=== PATIENT | male | born 1980 | race Caucasian/White ===

== ENCOUNTER 2020-04-12 21:43 | Observation (INO) ==
[2020-04-12] MEDS ORDERED: SODIUM CHLORIDE 0.9% 1000ML 1,000 ML IV SCH (22:15)
[2020-04-12 22:37] LABS: Basophils # (auto) 0.04 K/uL (0-0.2); Basophils % (auto) 0.4 %; Eosinophils # (auto) 0.17 K/uL (0-0.5); Eosinophils % (auto) 1.7 %; Hematocrit (blood only) 42.2 % (42-52); Hemoglobin 14.7 g/dL (14.0-18.0); Immature Granulocytes # (auto) 0.02 K/uL (0.00-0.02); Immature Granulocytes % (auto) 0.2 %; Lymphocytes # (auto) 2.47 K/uL (1.2-3.4); Lymphocytes % (auto) 24.2 %; Mean Corpuscular Hemoglobin 29.8 pg (25-34); Mean Corpuscular Hgb Conc 34.8 g/dL (32-36); Mean Corpuscular Volume 85.4 fL (80-100); Mean Platelet Volume 8.8 fL (7.4-10.4); Monocytes # (auto) 0.48 K/uL (0.11-0.59); Monocytes % (auto) 4.7 %; Neutrophils # (auto) 7.01 K/uL (1.4-6.5); Neutrophils % (auto) 68.8 %; Platelet Count 388 K/uL (130-400); RDW Coefficient of Variation 12.7 % (11.5-14.5); RDW Standard Deviation 39.5 fL (36.4-46.3); Red Blood Count 4.94 M/uL (4.7-6.1); White Blood Count 10.19 K/uL (4.8-10.8)
[2020-04-12 22:43] LABS: Alanine Aminotransferase 98 U/L (12-78); Albumin Level 3.7 gm/dl (3.4-5.0); Aspartate Aminotransferase 70 U/L (15-37); BUN Creatinine Ratio 17.5 (10-20); Blood Urea Nitrogen 17 mg/dl (7-18); Carbon Dioxide 29 mmol/L (21-32); Chloride 104 mmol/L (98-107); Creatinine Clr Calc Pharmacy 101.8 ml/min; Est GFR (African American) 113.7; Est GFR (Non-African American) 98.1; Glucose 132 mg/dl (70-99); Sodium 137 mmol/L (136-145)
[2020-04-12 22:46] LABS: Albumin Globulin Ratio 0.7 (0.9-2); Alkaline Phosphatase 72 U/L (45-117); Bilirubin,Total 0.9 mg/dl (0.2-1); Globulin 5.2 gm/dl (2.5-4.0); Total Protein 8.9 gm/dl (6.4-8.2)
[2020-04-12] MEDS ORDERED: VANCOMYCIN CONSULT ACTIVE PRN (22:48)
[2020-04-12] MEDS ORDERED: VANCOMYCIN HCL 1,500 MG in SODIUM CHLORIDE 0.9% 500 ML IV ONE (22:48)
[2020-04-12] MEDS ORDERED: NICOTINE 21 MG/24 HR TDSY TD STA (22:58)
--- NOTE | 2020-04-13 01:55 | History & Physical Report ---
Date of Service April 13, 2020 Assessment & Plan (1) Arm ulcer: Mr. Sullivan is a 39yo gentleman with a PMHx significant for IV drug abuse and alcohol abuse who was brought in by sister with concern for untreated arm ulcers/wounds. Wound on arm in setting of cellulitis and Hx of IV drug abuse -Pt states that the wounds/ulcers first appeared a year ago and progressively got worse -Has a Hx of IV heroin abuse in his teens, has been injecting subutex (NOT suboxone) recently, most recent injection into his arms about 3 months ago. Also injects into his toes. -of note, pt states he is terrified of needles (even though he used to inject) -afebrile on admission, no elevation in WBC -XR bilateral forearms pending, ESR and CRP pending for concern of osteomyelitis -Blood Cx pending x1 (pt dislikes needles) -No echo ordered as with no fever, no new murmur on exam-less concern for endocarditis. Consider ordering if blood culture is positive. -continue Vancomycin started in the ED -Toradol 15mg IV for pain -wound care nurse consult -consider surgery consult for possible debridement? -consult CM for discharge planning- pt would like help with subutex abuse Chest Pain -pt states he has periodic chest pain, relieved by laying down -EKG pending -trops added to already drawn labs and pending Elevated liver enzymes -AST and ALT elevated, alk phos and t bili normal -Pt has hx of chronic alcohol use- states he went through alcohol withdrawal once -Liver US ordered -consider Hepatitis panel if pt allows another blood draw Elevated glucose -glucose of 132 on admission, granted not fasting -hgba1c added to blood already drawn to rule out nonhealing ulcers in setting of hyperglycemia. Alcohol Abuse -Pt states he currently drinks 1 beer a day -Has previously undergone alcohol withdrawal -AWSS "at risk" protocol ordered FEN/GI: Regular diet DVT prophylaxis: SCDs as pt hates needles CODE STATUS: Full Dispo:Med/Surg (2) Elevated glucose: (3) Elevated liver enzymes: History of Present Illness Primary Care Provider: NO PCP Mr. Sullivan is a 39yo gentleman with a PMHx significant for IV drug abuse and alcohol abuse who was brought in by sister with concern for untreated arm ulcers/wounds. He states that the arm wounds developed about a year ago and he has been self treating at home with peroxide and bandages. He has a hx of injecting heroin as a teenager and has been injecting subutex (not suboxone) into his arms and feet as recently as 3 months ago. Currently he chews Subutex tablets that he obtains illegally every other day. He states that the lesions on his arm are not painful but he has noted pus-like drainage from them. He has smoked 2ppd since age 13, drinks a beer everyday and is allergic to Suboxone but uses Subutex. He lives in [place] with his girlfriend and 2 kids. 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 Allergies Allergy/AdvReac Type Severity Reaction Status Date / Time codeine AdvReac Intermediate Gastrointestinal Verified 04/12/20 22:29 Upset buprenorphine [From Suboxone] AdvReac Mild SEVERE Verified 04/12/20 22:29 HEADACH--SUBUTEX IS OK. naloxone [From Suboxone] AdvReac Mild SEVERE Verified 04/12/20 22:29 HEADACH--SUBUTEX IS OK. Home Medications Home Medications Medication Instructions Recorded Confirmed Type buprenorphine HCl [Subutex] 8 mg SUBLINGUAL Q OTHER DAY 04/12/20 04/12/20 History Past Med/Surg History Social History Smoking Status: Current every day smoker Second Hand Exposure: Yes; Do You Dip or Chew Tobacco: No; Tobacco Cessation Education Requested by Patient: Yes Hx Alcohol Use: Yes Alcohol type: beer Hx Substance Use: Yes Last Used Substance: Hours (ago) Last Used Substance Other:: 04/12/2020 Substance Use Type Other:: Subutex PO "disolves under the tongue" Preferred Language: Bermudian Communication Ability: Effective Beliefs That Will Affect Care: None Current Living Situation: Spouse Current Living Situation Comment: Lives at home with Kids and Girlfrined Other Information That Helps Us Care for You: No Feels Safe at Home: Yes Safety Concerns: Feels Safe At This Time Assistive Devices: None Review of Systems Constitutional: no fever, no chills and no sweats Eyes: no worsening vision Ear, Nose, Mouth, Throat: no nasal congestion and no sore throat Respiratory: no dyspnea and no dyspnea on exertion Cardiovascular: + chest pain; no dyspnea, no palpitations and no edema Gastrointestinal: no abdominal pain, no nausea, no vomiting, no constipation, no diarrhea/loose stools and no blood in stools Genitourinary: no dysuria and no hematuria Musculoskeletal: no back pain Integumentary: + skin ulcer Neurologic: no headache(s) and no confusion Psychiatric: no confusion Physical Exam Physical Exam: General: Alert, oriented. No acute distress, sitting up in bed Skin: Stage III/IV ulcerated lesion on right forearm with necrotic tissue and eschar, surrounding erythema. Similar but to lesser degree on left forearm. Psych: Appropriate mood and affect Neuro: No gross deficits HEENT: NC/AT Chest: Nontender to palpation. CV: RRR, Normal s1, s2. No murmurs appreciated Resp: Breath sounds clear bilaterally, no increased effort of breathing. No crackles/rhonchi/rales. Abdomen: Soft, nontender, nondistended. Extremities: No edema in lower extremities bilaterally. Results & Data Results & Data ([facility]) Vital Signs (Past 12 Hours) Vital Signs Temp Pulse Pulse Resp BP BP Pulse Ox 04/13/20 01:13 88 18 124/65 98 04/12/20 22:24 82 20 127/73 95 04/12/20 21:45 36.7 C 111 H 18 149/81 H 95 Laboratory Results Lab Results 04/12/20 04/12/20 04/12/20 Range/Units 22:15 22:15 22:15 WBC 10.19 (4.8-10.8) K/uL RBC 4.94 (4.7-6.1) M/uL Hgb 14.7 (14.0-18.0) g/dL Hct 42.2 (42-52) % MCV 85.4 (80-100) fL MCH 29.8 (25-34) pg MCHC 34.8 (32-36) g/dL RDW Std Deviation 39.5 (36.4-46.3) fL RDW Coeff of Andreia 12.7 (11.5-14.5) % Plt Count 388 (130-400) K/uL MPV 8.8 (7.4-10.4) fL Immature Gran % (Auto) 0.2 % Neut % (Auto) 68.8 % Lymph % (Auto) 24.2 % Carson % (Auto) 4.7 % Eos % (Auto) 1.7 % Baso % (Auto) 0.4 % Neut # (Auto) 7.01 H (1.4-6.5) K/uL Lymph # (Auto) 2.47 (1.2-3.4) K/uL Carson # (Auto) 0.48 (0.11-0.59) K/uL Eos # (Auto) 0.17 (0-0.5) K/uL Baso # (Auto) 0.04 (0-0.2) K/uL Immature Gran # (Auto) 0.02 (0.00-0.02) K/uL ESR (0-14) mm/hr Sodium 137 (136-145) mmol/L Potassium 4.0 (3.5-5.1) mmol/L Chloride 104 (98-107) mmol/L Carbon Dioxide 29 (21-32) mmol/L Anion Gap 3.0 (3-11) BUN 17 (7-18) mg/dl Creatinine 0.98 (0.6-1.4) mg/dl Est Cr Clr Drug Dosing 101.8 ml/min Est GFR ( Amer) 113.7 Est GFR (Non-Af Amer) 98.1 BUN/Creatinine Ratio 17.5 (10-20) Glucose 132 H (70-99) mg/dl Lactate 1.6 (0.4-2.0) mmol/L Calcium 9.0 (8.5-10.1) mg/dl Total Bilirubin 0.9 (0.2-1) mg/dl AST 70 H (15-37) U/L ALT 98 H (12-78) U/L Alkaline Phosphatase 72 (45-117) U/L Troponin I < 0.015 (0-0.045) ng/ml C-Reactive Protein 2.35 H (0-0.29) mg/dl Total Protein 8.9 H (6.4-8.2) gm/dl Albumin 3.7 (3.4-5.0) gm/dl Globulin 5.2 H (2.5-4.0) gm/dl Albumin/Globulin Ratio 0.7 L (0.9-2) Urine Color Urine Appearance (Clear) Urine pH (4.5-7.5) Ur Specific [place] (1.000-1.030) Urine Protein (Negative) Urine Glucose (UA) (Negative) Urine Ketones (Negative) Urine Blood (Negative) Urine Nitrite (Negative) Urine Bilirubin (Negative) Urine Urobilinogen (Negative) Ur Leukocyte Esterase (Negative) 04/12/20 04/13/20 Range/Units 22:15 04:16 WBC (4.8-10.8) K/uL RBC (4.7-6.1) M/uL Hgb (14.0-18.0) g/dL Hct (42-52) % MCV (80-100) fL MCH (25-34) pg MCHC (32-36) g/dL RDW Std Deviation (36.4-46.3) fL RDW Coeff of Andreia (11.5-14.5) % Plt Count (130-400) K/uL MPV (7.4-10.4) fL Immature Gran % (Auto) % Neut % (Auto) % Lymph % (Auto) % Carson % (Auto) % Eos % (Auto) % Baso % (Auto) % Neut # (Auto) (1.4-6.5) K/uL Lymph # (Auto) (1.2-3.4) K/uL Carson # (Auto) (0.11-0.59) K/uL Eos # (Auto) (0-0.5) K/uL Baso # (Auto) (0-0.2) K/uL Immature Gran # (Auto) (0.00-0.02) K/uL ESR 21 H (0-14) mm/hr Sodium (136-145) mmol/L Potassium (3.5-5.1) mmol/L Chloride (98-107) mmol/L Carbon Dioxide (21-32) mmol/L Anion Gap (3-11) BUN (7-18) mg/dl Creatinine (0.6-1.4) mg/dl Est Cr Clr Drug Dosing ml/min Est GFR ( Amer) Est GFR (Non-Af Amer) BUN/Creatinine Ratio (10-20) Glucose (70-99) mg/dl Lactate (0.4-2.0) mmol/L Calcium (8.5-10.1) mg/dl Total Bilirubin (0.2-1) mg/dl AST (15-37) U/L ALT (12-78) U/L Alkaline Phosphatase (45-117) U/L Troponin I (0-0.045) ng/ml C-Reactive Protein (0-0.29) mg/dl Total Protein (6.4-8.2) gm/dl Albumin (3.4-5.0) gm/dl Globulin (2.5-4.0) gm/dl Albumin/Globulin Ratio (0.9-2) Urine Color Yellow Urine Appearance Clear (Clear) Urine pH 7.0 (4.5-7.5) Ur Specific [place] 1.028 (1.000-1.030) Urine Protein Negative (Negative) Urine Glucose (UA) Negative (Negative) Urine Ketones Negative (Negative) Urine Blood Negative (Negative) Urine Nitrite Negative (Negative) Urine Bilirubin Negative (Negative) Urine Urobilinogen Negative (Negative) Ur Leukocyte Esterase Negative (Negative) Supervising Physician Co-Signing Physician Notes Patient seen and examined, chart reviewed, case discussed with Dr. Washington and I agree with his assessment and plan as documented above. Briefly, patient is a 39yo C male with history of IV heroine use (last in 2006). He was previously on Suboxone which reportedly caused nausea and headache. He thinks he lost his insurance and then his prescriber. He was purchasing Subutex from the street and injecting it (last IV use 3 months ago). He now purchases subutex off the street and takes 1/2 tablet daily (typically 1/4 tablet twice a day). He comes today with forearm wounds that have been present x 1 year. Denies fevers/chills/nausea/vomiting/diarrhea/constipation. States that the wounds on the forearms don't hurt unless he bumps them. Mild bleeding and drainage at times. On exam he is afebrile, HD stable, NAD Skin - large ulcerated wounds on bilateral forearms with eschar, granulation tissue present, mild cellulits surrounding area of wound, no bleeding/drainage/crepitus/bullae/streaking HEENT - NC/AT, PERRL, EOMI, Nck supple Heart - +S/S2, regular, no m/r/g Lungs - CTA Abd - +BS, soft, NT/ND Ext - trace edema Labs and images reviewed. NO leukocytosis. Assessment/Plan: -Wound care, ?surgical consultation for debridement -Vancomycin -X-ray forearms -Patient is EXTREMELY afraid of needles and poorly tolerates blood draws. He stated that he may not be able to tolerate frequent blood draws. Spoke with lab and added on ESR, CRP, A1C and troponin. Will try to limit additional blood draws if able. ?using I-stat from ER if needed to obtain chemistry/h/h? -Blood cultures x 1 sent -Remainder of plan as above Resident Activity Tracking Resident Involvement: Resident Care Provided Care Provided: Adult Hospital Medicine
[2020-04-13] MEDS ORDERED: LORazepam 1 MG/2 ML VIAL IV PRN (02:53)
[2020-04-13] MEDS ORDERED: KETOROLAC TROMETHAMINE 15 MG/ML VIAL IV PRN (02:53)
[2020-04-13] MEDS ORDERED: VANCOMYCIN CONSULT ACTIVE PRN (02:53)
[2020-04-13 02:56] LABS: C Reactive Protein 2.35 mg/dl (0-0.29); Troponin I < 0.015 ng/ml (0-0.045)
[2020-04-13 04:53] LABS: Appearance Urine Clear (Clear); Bilirubin Urine Negative (Negative); Blood Urine Negative (Negative); Color Urine Yellow; Glucose Urine UA Negative (Negative); Ketones Urine Negative (Negative); Leukocyte Esterase Urine Negative (Negative); Nitrite Urine Negative (Negative); Protein Urine Negative (Negative); Specific Gravity Urine 1.028 (1.000-1.030); Urobilinogen Urine Negative (Negative)
[2020-04-13 05:14] LABS: Amphetamines+Metham, Urine Pos (Neg); Barbiturates, Urine Neg (Neg); Benzodiazepine, Urine Neg (Neg); Cocaine, Urine Neg (Neg); MDMA (Ecstacy), Urine Neg (Neg); Methadone, Urine Neg (Neg); Opiate, Urine Neg (Neg); Phencyclidine, Urine Neg (Neg)
--- NOTE | 2020-04-13 05:24 | Billing Data ---
Date of Service April 13, 2020 Coding Level of Care Code 69465 Initial Inpt Care Lvl 3
--- NOTE | 2020-04-13 06:45 | Pharmacy Report ---
Pharmacy Abx Initial Consult - Date of Service April 13, 2020 - Pharmacy Dosing Scope Date of Consult: 04/12/20 Consultation requested by: Dr. Washington Pharmacy is consulted to continue Vancomycin IV dosing therapy begun in the ED, order appropriate labs and adjust drug dose/frequency. - Subjective The patient is a 39 year old M admitted on 04/13/20 01:29 with multiple arm ulcers. His sister brought him for treatment due to severity. He has history of injecting Heroin but most recently has injected Suboxone or Sebutex. Dr. Washington consults pharmacy to continue Vancomycin that was started in the ED. - Objective Height: 5 ft 6 in Weight: 78.6 kg Vital Signs (Past 12hrs): Vital Signs Temp Pulse Pulse Resp BP BP Pulse Ox 04/13/20 03:05 36.5 C 79 20 135/78 98 04/13/20 02:25 83 20 134/78 98 04/13/20 01:13 88 18 124/65 98 04/12/20 22:24 82 20 127/73 95 04/12/20 21:45 36.7 C 111 H 18 149/81 H 95 Lab Results (24hrs): Laboratory Tests (24 Hours) 04/12/20 04/12/20 04/12/20 22:15 22:15 22:15 WBC 10.19 Neut # (Auto) 7.01 H ESR 21 H Creatinine 0.98 Est Cr Clr Drug Dosing 101.8 C-Reactive Protein 2.35 H Micro Results: 04/12/20 22:15 Aerobic Blood Culture - Pending Blood Anaerobic Blood Culture - Pending - Risk Factors for Resistance * - Assessment & Plan Assessment 39 year old M with arm ulcers Plan Vancomycin IV * Estimated PK Parameters: Vd 0.7 L/kg, Eloy 0.09 hr-1, t1/2 7.7 hr * Loading dose: 1500mg (~20 mg/kg) * Maintenance dose: 1000 mg IV (~13 mg/kg) every 8 hours (using AUC nomogram * Goal trough level: 15-20 mcg/mL * Trough level ordered prior to 1000 dose on 04/14/20 Pharmacy will continue to follow and will adjust dose/frequency as necessary. Thank you.
--- NOTE | 2020-04-13 07:12 | Hospitalist Progress Note ---
Date of Service April 13, 2020 Assessment & Plan (1) Arm ulcer: Mr. Sullivan is a 39yo gentleman with a PMHx significant for IV drug abuse and alcohol abuse who was brought in by sister with concern for untreated arm ulcers/wounds. He has a phobia of needles. He has been hemodynamically stable since his arrival. Arm Wounds, B/L, with Cellulitis in setting of recent IV Drug Use - Clinically, patient states that the wounds/ulcers first appeared a year ago but have progressively gotten worse - Has a history of IV heroin abuse in his teens, but has been more recently injecting Subutex (NOT Suboxone) into arms/toes, with last use approx. 3 months ago - Infection Workup: Afebrile throughout admission, no leukocytosis, ESR/CRP elevated as below - Await blood cultures - Consider echocardiogram if blood cultures are positive. Not ordered initially as no fever or new murmur. - XR bilateral forearms ordered to r/o osteomyelitis: Right (see below) // Left forearm XR: No osseous abnormality - R/O Osteomyelitis (R arm): - Right forearm XR: Subtle cortical irregularity of the midshaft of R ulna. Indeterminate for osteomyelitis - CRP is elevated at 2.35, ESR elevated at 21 - MRI of R arm placed for further evaluation -- f/u results - Continue Vancomycin for now - Pain control: Toradol 15mg IV PRN - Wound care nurse consult placed - General surgery consulted for evaluation and possible debridement Opioid Use Disorder - Opioid Use History: - Illicit Percocet use as teenager - Heroin injection as a teenager - Did undergo medically-supervised outpatient Suboxone treatment for ~20 months at one point (no inpatient rehab in past) - Relapsed thereafter - Subutex (buprenorphine, not Suboxone) injections into arms and feet, with last injection as recently as three months ago - Subutex PO tablets qod, currently - Currently not demonstrating any signs, symptoms, or VS reflections of withdrawal - Initiated on Subutex 8mg SL q2d KIMBERLY ordered for current stay - Consult CM for discharge planning - pt would like help with Subutex abuse - Anticipate close outpatient follow-up for treatment and management of OUD: is amenable to f/u with Dr. Lopez with [facility] Elevated liver enzymes - AST (78) and ALT (98) elevated; ALP and TBili are normal, but CRP elevated at 2.35 / ESR at 21 - Pt has history of chronic alcohol use - states he went through alcohol withdrawal once, but has only been drinking 1 beer / day lately - Liver US ordered for further work-up - No appreciable hepatic abnormalities. Sonographically normal appearance. - There is a solitary hypoechoic peripancreatic nodule that is likely a benign node. Recommended f/u in 3 months to ensure stability - Consider Hepatitis + HIV panel if patient allows blood draw -- if another blood draw is needed during his time, should add these on to minimize number of sticks Alcohol Abuse - Does have appreciable history of alcohol abuse in the past, complicated by hospitalizations for alcohol withdrawal - Current alcohol use: 1 beer / day - AWSS "at risk" protocol ordered Chest Pain: Resolved - On admission, patient did report chest pain that was alleviated by lying down. He reports getting this "every so often." Has remained clinically absent throughout today - ECG obtained this AM demonstrated non-specific, mild ST elevations spanning multiple territories -- possibly early repolarization - Troponin < 0.015 on admission Tobacco Abuse - Current Use: Cigarettes, 2ppd since age 13 (22pack-year history) - Nicoderm 21mg TD qAM patches during hospitalization Elevated glucose - Glucose of 132 on admission, granted not fasting - A1c added to blood already drawn to rule out nonhealing ulcers in setting of hyperglycemia. Note: Please note that patient has a phobia of needles FEN/GI: Regular diet DVT prophylaxis: SCDs as pt hates needles CODE STATUS: Full Dispo:Med/Surg (2) Elevated glucose: (3) Elevated liver enzymes: Admission and Anticipated Discharge Date Admission Date: April 13, 2020 Supervising Physician Co-Signing Physician Notes Resident Physician Supervision Note: I independently interviewed and examined the patient and verified the merino history and physical, reviewed labs and image studies, discussed the case with the resident Dr. Lopez and agree with the findings and care plan. Subjective NAEO. Patient reports they feel fine overall this morning with no pain or discomfort. We reviewed the reason for his present admission; no updates or changes from what is remarked in the H&P. Denies any recent fevers, chills, or night sweats. His chest pain has resolved since admission, "hasn't been there f or a lot of hours." No shortness of breath. No leg or foot pain. Review of Systems Review of Systems: as per HPI Physical Exam Constitutional: Tired-appearing 39 year old male who is lying back in his hospital bed upon my arrival. He did appear to be sweating throughout his sleep, as evidenced by his forehead/hair. He is otherwise alert and oriented throughout our discussion and responds to questions appropriately. NAD. Respiratory: normal respiratory effort, lungs clear to auscultation Cardiovascular: Normal rate, regular rhythm. S1 and S2 are present. There are no rubs, murmurs, or gallops. Gastrointestinal (Abdomen): normal bowel sounds, soft, nontender, no hepatosplenomegaly Skin: There is a stage III ulceration present on his right forearm with surrounding erythema, which is unwrapped. There is surrounding necrotic tissue. It is warm to the touch. The left forearm is wrapped. Results & Data Results & Data ([facility]) Vital Signs (Past 12 Hours) Vital Signs Temp Pulse Pulse Resp BP BP Pulse Ox 04/13/20 03:05 36.5 C 79 20 135/78 98 04/13/20 02:25 83 20 134/78 98 04/13/20 01:13 88 18 124/65 98 04/12/20 22:24 82 20 127/73 95 04/12/20 21:45 36.7 C 111 H 18 149/81 H 95 Resident Activity Tracking Resident Involvement: Resident Care Provided Care Provided: Adult [facility]
--- NOTE | 2020-04-13 08:12 | Ultrasound Report ---
US liver CLINICAL HISTORY: elevated liver enzymes COMPARISON STUDY: No previous studies for comparison. FINDINGS: Liver is sonographically normal. There is no biliary ductal dilatation. Common bile duct me asures 4 mm in caliber. Gallbladder is contracted which accounts for gallbladder wall thickening. The re are no gallstones. No sonographic Galvan sign was elicited. Note was made of a 2.7 x 1.2 x 1 cm el ongated hypoechoic focus adjacent to the pancreatic head. This favors a peripancreatic lymph node. Th e pancreatic body is normal. The head and tail are obscured. There is no right hydronephrosis. IMPRESSION: 1. No gallstones or biliary ductal dilatation. 2. 2.7 x 1.2 x 1 cm hypoechoic peripancreatic nodule. This favors a prominent peripancreatic lymph no de. Although indeterminate, this is probably benign. A follow-up ultrasound in 3 months to ensure sta bility is recommended. ACT 112: Negative or not required by law. Electronically signed by: Oziel Gardner M.D. 04/13/2020 8:11 AM
--- NOTE | 2020-04-13 09:16 | XRay Report ---
XR forearm RT 2V CLINICAL HISTORY: ulcers, pain COMPARISON: None FINDINGS: No acute fracture within the right radius or ulna is identified. There is subtle cortical irregularity within the mid shaft of the right ulna. Right radius is unremarkable. Lateral view demon strates soft tissue defects along the dorsal aspect of the proximal right forearm suggestive of ulcer s. No radiopaque foreign bodies are identified. IMPRESSION: Subtle cortical irregularity of the midshaft of the right ulna. This finding is age indeterminate. If suspicion for osteomyelitis, an MRI is recommended. ACT 112: Negative or not required by law. Electronically signed by: Oziel Gardner M.D. 04/13/2020 9:15 AM
--- NOTE | 2020-04-13 09:18 | XRay Report ---
XR forearm LT 2V CLINICAL HISTORY: wounds, ?osteo COMPARISON: None FINDINGS: No fracture is noted within the left radius or ulna. There is no radiographic evidence of osteomyelitis. Soft tissue irregularity of the dorsal aspect of the left forearm is noted suggestive of ulcers. There are soft tissue swelling. There is no radiopaque foreign body. Alignment of the left elbow is anatomic. There is no evidence for left elbow joint effusion. IMPRESSION: Left forearm ulcers and soft tissue swelling. No osseous abnormality of the left radius o r ulna. No radiographic evidence for osteomyelitis. ACT 112: Negative or not required by law. Electronically signed by: Oziel Gardner M.D. 04/13/2020 9:17 AM
[2020-04-13] MEDS: VANCOMYCIN HCL 1,000 MG in SODIUM CHLORIDE 0.9% 250 ML IV SCH ×2 (10:19→18:21)
[2020-04-13] MEDS: NICOTINE 21 MG/24 HR TDSY TD SCH (10:19)
--- NOTE | 2020-04-13 16:49 | Surgery Consultation ---
Date of Consultation April 13, 2020 Assessment & Plan (1) Arm ulcer: bilateral from previous track carbajal from IV injections reactive erythema will need wound nurse to prescribe dressings as outpatient would recommend wound clinic as outpatient smoking cessation likely potential referral to plastics for eventual skin graft Present on Admission?: Yes History of Present Illness Attending Physician: Doris Newman MD History of Present Illness 39YO male with a PMHx significant for IV drug abuse and alcohol abuse who was br ought in by sister with concern for untreated arm ulcers/wounds. He states that the arm wounds developed about a year ago and he has been self treating at home with peroxide and bandages. He has a hx of injecting heroin as a teenager and has been injecting subutex (not suboxone) into his arms and feet as recently as 3 months ago. Currently he chews Subutex tablets that he obtains illegally every other day. He has smoked 2ppd since age 13, drinks a beer everyday and is allergic to Suboxone but uses Subutex. He lives in [place] with his girlfriend and 2 kids. 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 Allergies Allergy/AdvReac Type Severity Reaction Status Date / Time codeine AdvReac Intermediate Gastrointestinal Verified 04/12/20 22:29 Upset buprenorphine [From Suboxone] AdvReac Mild SEVERE Verified 04/12/20 22:29 HEADACH--SUBUTEX IS OK. naloxone [From Suboxone] AdvReac Mild SEVERE Verified 04/12/20 22:29 HEADACH--SUBUTEX IS OK. Home Medications Home Medications Medication Instructions Recorded Confirmed Type buprenorphine HCl [Subutex] 8 mg SUBLINGUAL Q OTHER DAY 04/12/20 04/12/20 History Patient History Social History Smoking Status: Current every day smoker Second Hand Exposure: Yes; Do You Dip or Chew Tobacco: No; Tobacco Cessation Education Requested by Patient: Yes Hx Alcohol Use: Yes Alcohol type: beer Hx Substance Use: Yes Last Used Substance: Hours (ago) Last Used Substance Other:: 04/12/2020 Substance Use Type Other:: Subutex PO "disolves under the tongue" Preferred Language: Czech Communication Ability: Effective Beliefs That Will Affect Care: None Current Living Situation: Spouse Current Living Situation Comment: Lives at home with Kids and Girlfrined Other Information That Helps Us Care for You: No Feels Safe at Home: Yes Safety Concerns: Feels Safe At This Time Assistive Devices: None Review of Systems Constitutional: no fever, no chills, no fatigue and no anorexia Eyes: no problem reported Ear, Nose, Mouth, Throat: no problem reported Respiratory: no cough, no chest congestion and no dyspnea Cardiovascular: no chest pain, no chest pain at rest and no chest pain with activity Gastrointestinal: no abdominal pain, no nausea, no vomiting and no change in bowel habits Genitourinary: no dysuria, no difficulty urinating and no urinary hesitancy Musculoskeletal: no back pain, no neck pain and no joint pain Integumentary: + rash and + lesions Neurologic: no localized weakness and no generalized weakness Psychiatric: no behavioral changes Endocrine: no fatigue, no polyphagia and no polyuria Physical Exam Constitutional: well developed and well nourished; no acute distress Eyes: PERRL, conjunctivae normal, anicteric sclerae ENMT: external ear and nose normal, oropharynx normal Neck: trachea midline Respiratory: normal respiratory effort, lungs clear to auscultation Auscultation: + rhonchi Cardiovascular: RRR, no murmur, no edema Gastrointestinal (Abdomen): normal bowel sounds, soft, nontender, no hepatosplenomegaly Musculoskeletal: Head/Neck/Chest: normocephalic Skin: no rashes, warm and dry bilateral full thickness ulcers with reasonable granulation; no fluctuance Psychiatric: Orientation: alert and oriented x 3 Results & Data ([facility]) Vital Signs (Past 12 Hours) Vital Signs Temp Pulse Resp BP Pulse Ox 04/13/20 16:41 37.2 C 90 18 139/88 97 04/13/20 07:35 36.7 C 74 16 128/79 97 Diagnostic Findings XR forearm RT 2V CLINICAL HISTORY: ulcers, pain COMPARISON: None FINDINGS: No acute fracture within the right radius or ulna is identified. There is subtle cortical irregularity within the mid shaft of the right ulna. Right radius is unremarkable. Lateral view demonstrates soft tissue defects along the dorsal aspect of the proximal right forearm suggestive of ulcers. No radiopaque foreign bodies are identified. IMPRESSION: Subtle cortical irregularity of the midshaft of the right ulna. This finding is age indeterminate. If suspicion for osteomyelitis, an MRI is recommended. XR forearm LT 2V CLINICAL HISTORY: wounds, ?osteo COMPARISON: None FINDINGS: No fracture is noted within the left radius or ulna. There is no radiographic evidence of osteomyelitis. Soft tissue irregularity of the dorsal aspect of the left forearm is noted suggestive of ulcers. There are soft tissue swelling. There is no radiopaque foreign body. Alignment of the left elbow is anatomic. There is no evidence for left elbow joint effusion. IMPRESSION: Left forearm ulcers and soft tissue swelling. No osseous abnormality of the left radius or ulna. No radiographic evidence for osteomyelitis.
--- NOTE | 2020-04-13 22:16 | Emergency Department Note ---
History of Present Illness General Chief complaint: Wound Stated complaint: OPEN WOUNDS ON BOTH ARMS Time Seen by Provider: 04/12/20 21:55 History of Present Illness This is a 39-year-old male presenting to the emergency department for evaluation of bilateral arm ulcerations. The patient has a history of heroin abuse and injecting Subutex for the past several years. He estimates that about 1 year ago he began injecting into his forearms, and ultimately ended up with large ulcerations. They have had some increasing discomfort recently, and he did go to [facility] for evaluation. They were not able to establish IV access, and the patient left AGAINST MEDICAL ADVICE. The patient now presents to this [facility] for further management. The primary change in status is that his sister became involved in his care, and she seems to be the driving force in getting him to become healthy. The patient does smoke tobacco and drinks on a regular basis. He will intermittently still use heroin, and it seems that he primarily is injecting into his feet. The patient has not had any recent fevers or chills. He typically uses peroxide on the wounds at home to keep them clean. 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 He rates his current discomfort an 8/10. He does voice a needle phobia. Home Medications Home Medications Medication Instructions Recorded Confirmed Type buprenorphine HCl [Subutex] 8 mg SUBLINGUAL Q OTHER DAY 04/12/20 04/12/20 History Allergies Allergy/AdvReac Type Severity Reaction Status Date / Time codeine AdvReac Intermediate Gastrointestinal Verified 04/12/20 22:29 Upset buprenorphine [From Suboxone] AdvReac Mild SEVERE Verified 04/12/20 22:29 HEADACH--SUBUTEX IS OK. naloxone [From Suboxone] AdvReac Mild SEVERE Verified 04/12/20 22:29 HEADACH--SUBUTEX IS OK. Past Med/Surg History Medical History (Updated 04/13/20 @ 22:16 by Gil Goldman PA-C) Arm ulcer Drug abuse Elevated liver enzymes Surgical History (Updated 04/13/20 @ 22:06 by Gil Goldman PA-C) No significant past surgical history Social History Smoking Status: Current every day smoker Second Hand Exposure: Yes; Do You Dip or Chew Tobacco: No; Tobacco Cessation Education Requested by Patient: Yes Hx Alcohol Use: Yes Alcohol type: beer Hx Substance Use: Yes Last Used Substance: Hours (ago) Last Used Substance Other:: 04/12/2020 Substance Use Type Other:: Subutex PO "disolves under the tongue" Preferred Language: Norwegian Communication Ability: Effective Beliefs That Will Affect Care: None Current Living Situation: Spouse Current Living Situation Comment: Lives at home with Kids and Girlfrined Other Information That Helps Us Care for You: No Feels Safe at Home: Yes Safety Concerns: Feels Safe At This Time Assistive Devices: None Review of Systems A total of 10 systems reviewed and were otherwise negative Physical Exam Vital Signs Vital Signs - 24 hr 04/12/20 22:24 04/13/20 01:13 Pulse Rate [Finger] 82 88 Pulse Rhythm [Finger] Regular Regular Respiratory Rate 20 18 Respiratory Depth Normal Blood Pressure [Right Arm] 127/73 124/65 Blood Pressure Mean [Right Arm] 91 84 Pulse Oximetry 95 98 Oxygen Delivery Method Room Air Room Air VITALS: Vitals are noted on the nurse's note and reviewed by myself. Vital signs stable. GENERAL: Well-developed, well-nourished, white male, who is in no acute distress and resting comfortably. Patient is cooperative with the examination. HEAD: Normocephalic atraumatic. HEART: Regular rate and rhythm without murmurs gallops or rubs. LUNGS: Clear to auscultation bilaterally without wheezes, rales or rhonchi. No retractions or accessory muscle use. MUSCULOSKELETAL: There are large ulcerations noted on the bilateral anterior medial aspect of the bilateral forearms. There is distinct necrotic tissue, eschar, and surrounding erythema. The right arm appears to be slightly worse representing at least stage III and possibly stage IV ulcer. The left arm is slightly better than this, but still concerning. There is no distinct drainage or discharge at this time for culture. No surrounding palpable cords. Neurovascular status appears intact to the distal extremity. NEURO: Patient was alert and oriented to person place and time. CN II through XII grossly intact. GCS 15 PSYCH: Appropriate mood and affect Course Administered Medications Vancomycin HCl 1,000 mg/ (Sodium Chloride) 270 mls @ 200 mls/hr IV Q8H KIMBERLY Stop: 04/20/20 09:59 Last Infusion: 04/13/20 21:28 Dose: 0 mls/hr Documented by: [id number] Admin: 04/13/20 18:21 Dose: 200 mls/hr Documented by: [id number] Infusion: 04/13/20 11:40 Dose: 0 mls/hr Documented by: [id number] Admin: 04/13/20 10:19 Dose: 200 mls/hr Documented by: [id number] Miscellaneous (Remove Nicoderm Patch) 1 ea N/A [id number] [facility] Stop: 05/13/20 08:58 Last Admin: 04/13/20 10:19 Dose: 1 ea Documented by: [id number] Nicotine (Nicotine 21 Mg/24 Hr Tdsy) 21 mg TD QAM KIMBERLY Stop: 05/13/20 08:59 Last Admin: 04/13/20 10:19 Dose: 21 mg Documented by: [id number] Discontinued Medications Sodium Chloride (Nss 1000ml) 1,000 mls @ 999 mls/hr IV .Q1H1M KIMBERLY Stop: 04/12/20 23:15 Last Infusion: 04/13/20 04:06 Dose: 0 mls/hr Documented by: [id number] Admin: 04/12/20 22:22 Dose: 999 mls/hr Documented by: [id number] Vancomycin HCl 1,500 mg/ (Sodium Chloride) 530 mls @ 200 mls/hr IV NOW ONE Stop: 04/13/20 01:26 Last Infusion: 04/13/20 04:06 Dose: 0 mls/hr Documented by: [id number] Admin: 04/12/20 23:08 Dose: 200 mls/hr Documented by: [id number] Nicotine (Nicotine 21 Mg/24 Hr Tdsy) 21 mg TD NOW STA Stop: 04/12/20 22:59 Last Admin: 04/12/20 23:08 Dose: 21 mg Documented by: [id number] Medical Decision Making Differential Diagnosis Differential diagnosis includes: Etiologies such as cellulitis, abscess, osteomyelitis, MRSA infection, DVT, necrotizing fasciitis, dermatitis, drug eruption, as well as others were entertained Laboratory Data Result diagrams: 04/12/20 22:15 04/12/20 22:15 Lab Results 04/12/20 04/12/20 04/12/20 Range/Units 22:15 22:15 22:15 WBC 10.19 (4.8-10.8) K/uL RBC 4.94 (4.7-6.1) M/uL Hgb 14.7 (14.0-18.0) g/dL Hct 42.2 (42-52) % MCV 85.4 (80-100) fL MCH 29.8 (25-34) pg MCHC 34.8 (32-36) g/dL RDW Std Deviation 39.5 (36.4-46.3) fL RDW Coeff of Andreia 12.7 (11.5-14.5) % Plt Count 388 (130-400) K/uL MPV 8.8 (7.4-10.4) fL Immature Gran % (Auto) 0.2 % Neut % (Auto) 68.8 % Lymph % (Auto) 24.2 % [place] % (Auto) 4.7 % Eos % (Auto) 1.7 % Baso % (Auto) 0.4 % Neut # (Auto) 7.01 H (1.4-6.5) K/uL Lymph # (Auto) 2.47 (1.2-3.4) K/uL [place] # (Auto) 0.48 (0.11-0.59) K/uL Eos # (Auto) 0.17 (0-0.5) K/uL Baso # (Auto) 0.04 (0-0.2) K/uL Immature Gran # (Auto) 0.02 (0.00-0.02) K/uL ESR (0-14) mm/hr Sodium 137 (136-145) mmol/L Potassium 4.0 (3.5-5.1) mmol/L Chloride 104 (98-107) mmol/L Carbon Dioxide 29 (21-32) mmol/L Anion Gap 3.0 (3-11) BUN 17 (7-18) mg/dl Creatinine 0.98 (0.6-1.4) mg/dl Est Cr Clr Drug Dosing 101.8 ml/min Est GFR ( Amer) 113.7 Est GFR (Non-Af Amer) 98.1 BUN/Creatinine Ratio 17.5 (10-20) Glucose 132 H (70-99) mg/dl Lactate 1.6 (0.4-2.0) mmol/L Calcium 9.0 (8.5-10.1) mg/dl Total Bilirubin 0.9 (0.2-1) mg/dl AST 70 H (15-37) U/L ALT 98 H (12-78) U/L Alkaline Phosphatase 72 (45-117) U/L Troponin I < 0.015 (0-0.045) ng/ml C-Reactive Protein 2.35 H (0-0.29) mg/dl Total Protein 8.9 H (6.4-8.2) gm/dl Albumin 3.7 (3.4-5.0) gm/dl Globulin 5.2 H (2.5-4.0) gm/dl Albumin/Globulin Ratio 0.7 L (0.9-2) 04/12/20 Range/Units 22:15 WBC (4.8-10.8) K/uL RBC (4.7-6.1) M/uL Hgb (14.0-18.0) g/dL Hct (42-52) % MCV (80-100) fL MCH (25-34) pg MCHC (32-36) g/dL RDW Std Deviation (36.4-46.3) fL RDW Coeff of Andreia (11.5-14.5) % Plt Count (130-400) K/uL MPV (7.4-10.4) fL Immature Gran % (Auto) % Neut % (Auto) % Lymph % (Auto) % [place] % (Auto) % Eos % (Auto) % Baso % (Auto) % Neut # (Auto) (1.4-6.5) K/uL Lymph # (Auto) (1.2-3.4) K/uL [place] # (Auto) (0.11-0.59) K/uL Eos # (Auto) (0-0.5) K/uL Baso # (Auto) (0-0.2) K/uL Immature Gran # (Auto) (0.00-0.02) K/uL ESR 21 H (0-14) mm/hr Sodium (136-145) mmol/L Potassium (3.5-5.1) mmol/L Chloride (98-107) mmol/L Carbon Dioxide (21-32) mmol/L Anion Gap (3-11) BUN (7-18) mg/dl Creatinine (0.6-1.4) mg/dl Est Cr Clr Drug Dosing ml/min Est GFR ( Amer) Est GFR (Non-Af Amer) BUN/Creatinine Ratio (10-20) Glucose (70-99) mg/dl Lactate (0.4-2.0) mmol/L Calcium (8.5-10.1) mg/dl Total Bilirubin (0.2-1) mg/dl AST (15-37) U/L ALT (12-78) U/L Alkaline Phosphatase (45-117) U/L Troponin I (0-0.045) ng/ml C-Reactive Protein (0-0.29) mg/dl Total Protein (6.4-8.2) gm/dl Albumin (3.4-5.0) gm/dl Globulin (2.5-4.0) gm/dl Albumin/Globulin Ratio (0.9-2) MDM Narrative Physical exam and history were performed. Nursing notes, EMR, and Medication List were personally reviewed. Patient appears to have rather significant appearing bilateral forearm ulcerations from injecting drugs. The patient does voice a strong needle phobia, and is amenable to attempting blood work. We were able to establish an IV with a small gauge needle in his wrist, and catheter labs. We were only able to gather 1 set of blood cultures because of this. Blood work was obtained and the patient was given IV fluids and IV vancomycin. He was given a nicotine patch. The patient's blood work is as above and was reviewed The patient's blood work is as above and was reviewed. He does not have a significantly elevated white blood cell count, gross anemia, bandemia, or significant electrolyte imbalance. He does have mildly elevated LFTs. Lactic acid x1 is negative. Troponin x1 is negative. Blood culture is pending. The patient was reevaluated multiple times throughout the course of his stay. I do have significant concern for the patient's wellbeing. He does not seem to have good insight as far as his medical care and navigating through a health system. The patient may need surgical debridement and possibly plastic surgery of his wounds. Additionally there are concerns about his drug use. He is willing at this time to be admitted to the facility, and I feel this gives him the best chance of a good outcome. The case was discussed with the on-call hospitalist who agreed to evaluate him here in the ER. Please see their dictation for further patient course, plan, and disposition. The chart was completed utilizing [employer] Voice Recognition Software. Grammatical errors, random word insertions, pronoun errors, and incomplete sentences are an occasional consequence of this system due to software l imitations, ambient noise, and hardware issues. Any formal questions or concerns about the content, text, or information contained within the body of this dictation should be directly addressed to the provider for clarification. . Impression & Plan Arm ulcer, Elevated liver enzymes, Drug abuse Discharge Plan Visit Data Chief Complaint: Wound Stated Complaint: OPEN WOUNDS ON BOTH ARMS ED Provider: Rodolfo Joshua ED Midlevel Provider: Gil Goldman Discharge Problem: Arm ulcer, Elevated liver enzymes, Drug abuse Patient Disposition: Admitted As Inpatient Discharge Instructions Interventions: ED Discharge Assessment Last Done: 04/13/20 02:26
[2020-04-14] MEDS: VANCOMYCIN HCL 1,000 MG in SODIUM CHLORIDE 0.9% 250 ML IV SCH ×2 (02:57→12:50)
--- NOTE | 2020-04-14 06:16 | Electrocardiogram Report ---
Test Reason : Blood Pressure : / mmHG Vent. Rate : 063 BPM Atrial Rate : 063 BPM P-R Int : 122 ms QRS Dur : 082 ms QT Int : 424 ms P-R-T Axes : 031 076 052 degrees QTc Int : 433 ms Normal sinus rhythm ST elevation, consider early repolarization Borderline ECG No previous ECGs available Confirmed by Jj Chambers ([id number]) on 04/14/2020 6:16:36 AM Referred By: REFERRED SELF Confirmed By:Jj Chambers
[2020-04-14 06:22] LABS: Estimated Average Glucose 114 mg/dl; Hemoglobin A1C 5.6 % (4.5-5.6)
--- NOTE | 2020-04-14 07:00 | Magnetic Resonance Report ---
MR forearm RT wo con CLINICAL HISTORY: ?osteomyelitis, stage III ulcers, h/o IV drug use COMPARISON STUDY: Right forearm radiographs April 13, 2020. TECHNIQUE: Utilizing a 1.5 Corinne magnet and dedicated coil, multiplanar, multi echo imaging of the [facility] forearm was performed without intravenous contrast. FINDINGS: Markers were placed on the right forearm at site of wound. Note is made of a large wound of the posteromedial aspect of the right forearm. No fluid collection is identified on this unenhanced exam to suggest an abscess. Note is made of mild intramuscular edema within the subjacent musculature with a small amount of interfascial fluid. Although sensitivity is decreased utilizing MRI, there is no evidence for soft tissue gas. There is moderate subcutaneous fluid of the distal right forearm an d wrist. There is no marrow edema to suggest osteomyelitis within the right radius or ulna. Alignment of the right elbow is anatomic. There is no right elbow joint effusion. No mass is identified. IMPRESSION: 1. Large wound of the posteromedial right forearm. Mild edema within the adjacent musculature suggest s myositis which may be infectious. Small amount of interfascial fluid. No fluid collection to sugges t abscess. No evidence for osteomyelitis within the right radius or ulna. 2. Moderate subcutaneous fluid within the distal right forearm and wrist. This may reflect cellulitis or edema. ACT 112: Negative or not required by law. Electronically signed by: Oziel Gardner M.D. 04/14/2020 6:59 AM
--- NOTE | 2020-04-14 08:22 | Hospitalist Progress Note ---
Date of Service April 14, 2020 Assessment & Plan (1) Arm ulcer: Mr. Sullivan is a 39yo gentleman with a PMHx significant for IV drug abuse and alcohol abuse who was brought in by sister with concern for untreated arm ulcers/wounds. He has a phobia of needles. He has been hemodynamically stable since his arrival. prefers pricking over blood draw. difficult stick. ultrasound for blood draws wound rn planning to debride later today? stopped vanc trough order. waiting to speak to pharmacy patient had told boss home no later than Arm Wounds, B/L, with Cellulitis in setting of recent IV Drug Use - Clinically, patient states that the wounds/ulcers first appeared a year ago but have progressively gotten worse - Has a history of IV heroin abuse in his teens, but has been more recently injecting Subutex (NOT Suboxone) into arms/toes, with last use approx. 3 months ago - Infection Workup: Afebrile throughout admission, no leukocytosis, ESR/CRP elevated as below - Await blood cultures - Consider echocardiogram if blood cultures are positive. Not ordered initially as no fever or new murmur. - XR bilateral forearms ordered to r/o osteomyelitis: Right (see below) // Left forearm XR: No osseous abnormality - R/O Osteomyelitis (R arm): - Right forearm XR: Subtle cortical irregularity of the midshaft of R ulna. Indeterminate for osteomyelitis - CRP is elevated at 2.35, ESR elevated at 21 - MRI of R arm placed for further evaluation -- f/u results - Continue Vancomycin for now - Pain control: Toradol 15mg IV PRN - Wound care nurse consult placed - General surgery consulted for evaluation and possible debridement Opioid Use Disorder - Opioid Use History: - Illicit Percocet use as teenager - Heroin injection as a teenager - Did undergo medically-supervised outpatient Suboxone treatment for ~20 months at one point (no inpatient rehab in past) - Relapsed thereafter - Subutex (buprenorphine, not Suboxone) injections into arms and feet, with last injection as recently as three months ago - Subutex PO tablets qod, currently - Currently not demonstrating any signs, symptoms, or VS reflections of withdrawal - Initiated on Subutex 8mg SL q2d KIMBERLY ordered for current stay - Consult CM for discharge planning - pt would like help with Subutex abuse - Anticipate close outpatient follow-up for treatment and management of OUD: is amenable to f/u with Dr. Lopez with [facility] Elevated liver enzymes - AST (78) and ALT (98) elevated; ALP and TBili are normal, but CRP elevated at 2.35 / ESR at 21 - Pt has history of chronic alcohol use - states he went through alcohol withdrawal once, but has only been drinking 1 beer / day lately - Liver US ordered for further work-up - No appreciable hepatic abnormalities. Sonographically normal appearance. - There is a solitary hypoechoic peripancreatic nodule that is likely a benign node. Recommended f/u in 3 months to ensure stability - Consider Hepatitis + HIV panel if patient allows blood draw -- if another blood draw is needed during his time, should add these on to minimize number of sticks Alcohol Abuse - Does have appreciable history of alcohol abuse in the past, complicated by hospitalizations for alcohol withdrawal - Current alcohol use: 1 beer / day - AWSS "at risk" protocol ordered Chest Pain: Resolved - On admission, patient did report chest pain that was alleviated by lying down. He reports getting this "every so often." Has remained clinically absent throughout today - ECG obtained this AM demonstrated non-specific, mild ST elevations spanning multiple territories -- possibly early repolarization - Troponin < 0.015 on admission Tobacco Abuse - Current Use: Cigarettes, 2ppd since age 13 (22pack-year history) - Nicoderm 21mg TD qAM patches during hospitalization Elevated glucose - Glucose of 132 on admission, granted not fasting - A1c added to blood already drawn to rule out nonhealing ulcers in setting of hyperglycemia. Note: Please note that patient has a phobia of needles FEN/GI: Regular diet DVT prophylaxis: SCDs as pt hates needles CODE STATUS: Full Dispo:Med/Surg (2) Elevated glucose: (3) Elevated liver enzymes: Admission and Anticipated Discharge Date Admission Date: April 13, 2020 Subjective Patient . feels a little nausea, similar to when he needs his subutex. states he has not had since sat. mild chills. no f/v, cp sob, other ros neg. no pain. bowel/bladder ok a yr of yellow drainage bilat arm. last ivdu subutex 78 days ago. since then, subutex 10pm 4 mg daily at home >1 yr since iv heroin Review of Systems Review of Systems: Constitutional: Denies fever, chills, weight change Eyes: Denies blurry vision, vision changes ENT: Denies sore throat, sinus pain Cardiovascular: Denies chest pain, palpitations Respiratory: Denies shortness of breath, cough, sputum production, difficulty breathing Gastrointestinal: Denies abdominal pain, nausea, vomiting, constipation, diarrhea Genitourinary: Denies urinary symptoms including dysuria Musculoskeletal: Denies weakness, muscle aches/pain, joint aches/pain Neurological: Denies headache, numbness, tingling, focal weakness Physical Exam Physical Exam: General: Grossly A&O. NAD. Cooperative. HEENT: Atraumatic, normocephalic. EOMI Pulm: CTAB. -wheezes, -rales, -rhonchi. No respiratory distress. Cardiac: RRR, -mrg. R radial 2+. L is wrapped up Abdominal: Nontender, nondistended, soft. trace le edema. heart abd ok. lungs ok. eomi. arms wrapped. dressing clean Results & Data Results & [facility] ([facility]) Vital Signs (Past 12 Hours) Vital Signs Temp Pulse Resp BP Pulse Ox 04/13/20 22:59 36.5 C 76 15 147/56 H 96
[2020-04-14] MEDS ORDERED: buprenorphine HCL 8 MG SUBL SL SCH (09:00)
[2020-04-14] MEDS ORDERED: VANCOMYCIN TROUGH ONE (09:30)
[2020-04-14] MEDS: NICOTINE 21 MG/24 HR TDSY TD SCH (09:33)
[2020-04-14] MEDS ORDERED: SULFAMETHOXAZOLE/TRIMETHOPRIM DS 800/160MG TAB PO ONE (13:30)
--- NOTE | 2020-04-14 14:51 | Surgery Progress Note ---
Date of Service F/U bilt arm ulcer, pt feels better, denies fever, April 14, 2020 Assessment & Plan (1) Arm ulcer: bilateral from previous track carbajal from IV injections reactive erythema will need wound nurse to prescribe dressings as outpatient would recommend wound clinic as outpatient smoking cessation likely potential referral to plastics for eventual skin graft 04/14/2020 2:49PM no surgical indication now, agree with above assessment, F/U wound care nurse or doctor sign off today, please call with questions, thanks, Admission and Anticipated Discharge Date Admission Date: April 13, 2020 Supervising Physician Co-Signing Physician Notes Resident Physician Supervision Note: I independently interviewed and examined the patient and verified the merino history and physical, reviewed labs and image studies, discussed the case with the resident Dr. Lopez and agree with the findings and care plan. Subjective Patient . feels a little nausea, similar to when he needs his subutex. states he has not had since sat. mild chills. no f/v, cp sob, other ros neg. no pain. bowel/bladder ok a yr of yellow drainage bilat arm. last ivdu subutex 78 days ago. since then, subutex 10pm 4 mg daily at home >1 yr since iv heroin Review of Systems Integumentary: + rash and + lesions Physical Exam Constitutional: WD/WN, vitals as above well developed and well nourished Eyes: PERRL, conjunctivae normal, anicteric sclerae Neck: trachea midline, no thyromegaly Respiratory: normal respiratory effort, lungs clear to auscultation Cardiovascular: RRR, no murmur, no edema Gastrointestinal (Abdomen): normal bowel sounds, soft, nontender, no hepatosplenomegaly Musculoskeletal: no cyanosis or clubbing, extremities motor strength 5/5 Skin: no rashes, warm and dry bilt arm ulcer, no abscess, Neurologic: patellar DTR's 2+ bilat, sensation intact Psychiatric: Orientation: alert and oriented x 3 Results & Data ([facility]) Vital Signs (Past 12 Hours) Vital Signs Temp Pulse Resp BP Pulse Ox 04/14/20 10:54 36.6 C 67 18 114/61 98 Laboratory Results Abnormal lab results 04/12/20 Range/Units 22:15 ESR 21 H (0-14) mm/hr
--- NOTE | 2020-04-14 19:14 | Discharge Summary ---
Date of Service April 14, 2020 Admission HPI Per Admitting Provider Mr. Sullivan is a 39yo gentleman with a PMHx significant for IV drug abuse and alcohol abuse who was brought in by sister with concern for untreated arm ulcers/wounds. He states that the arm wounds developed about a year ago and he has been self treating at home with peroxide and bandages. He has a hx of injecting heroin as a teenager and has been injecting subutex (not suboxone) into his arms and feet as recently as 3 months ago. Currently he chews Subutex tablets that he obtains illegally every other day. He states that the lesions on his arm are not painful but he has noted pus-like drainage from them. He has smoked 2ppd since age 13, drinks a beer everyday and is allergic to Suboxone but uses Subutex. He lives in [place] with his girlfriend and 2 kids. 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 Principal Diagnosis arm ulcerations Discharge Exam vitals noted gen aaox3 pleasant nad heent nc at mmm breathing unlabored no accessory muscles good effort no conversational dyspnea. skin no pallor or icterus, RUE deep ulceration packed, no surrounding or tracking erythema no crepitis. LUE ulceration similar but smaller and more shallow appearing than RUE. MRI noted - ulceration no appearance of osteomyelitis, some appearance of myositis Discharge Data Allergies Allergy/AdvReac Type Severity Reaction Status Date / Time codeine AdvReac Intermediate Gastrointestinal Verified 04/12/20 22:29 Upset buprenorphine [From Suboxone] AdvReac Mild SEVERE Verified 04/12/20 22:29 HEADACH--SUBUTEX IS OK. naloxone [From Suboxone] AdvReac Mild SEVERE Verified 04/12/20 22:29 HEADACH--SUBUTEX IS OK. Consultations 04/13/20 03:16 Consult Case Management - Discharge Planning Routine 04/13/20 11:26 Consult General Surgery Routine Ordered Studies 04/13/20 02:53 US liver Routine 04/14/20 00:55 MR forearm RT wo con Routine Hospital Course (1) Arm ulcer: from prior injection drug use. fortunately no s/s systemic or worsening infection - "just" deep nonhealing ulcers and localized myositis (no leuk ocytosis and negative blood culture thus far as well) d/w pt and sister in depth and at length - likely to be a very long road to healing - mostly w local wound care/dressings/debridements etc - although may end up needing plastic surgery/skin grafting - too soon to know this for sure and would need a foundation of clean area anyway -bactrim to cover for bacterial overgrowth (BMP if on for a prolonged time - to be determined as outpt - for now w depth of ulcers and myositis - anticipate 2wks but will depend on clinical progress) -outpt wound clinic (and then secondary referral to plastics if necessary) -stable for home (2) Elevated glucose: A1c 5.6 (3) Elevated liver enzymes: mild transaminitis - outpt f/u (4) Drug abuse: see discharge instructions - strongly rec'd maintenance therapy - discussed that essentially that is what he is doing right now, but would be far safer if medically directed and from a trustable source. (5) Discharge planning issues: stable for home -PCP f/u (planning to f/u w Dr Lopez [facility]) -- hep C and HIV testing rec'd - he is quite needle phobic and therefore requested it be done when he needs bloodwork again in the future - reasonable request - discussed having it done by the end of the year and discussed that hep C is quite treatable and HIV is quite manageable in the modern era - so both would be things well worth screening for) -wound clinic f/u Total Time Total Time Spent Total Time Spent (In Minutes): >30 Discharge Plan Discharge Items Patient Disposition: Home - Self-Care Reason For Visit: OPEN WOUNDS IN SETTING OF IV DRUG ABUSE Discharge Diagnosis: Bilateral upper extremity ulcers Activity: Per Instructions section Non-emergency contact: Primary Care Provider Call non-emergency contact if: you have any medication questions, your pain is worsening and you have a fever Follow-up/Referrals: Polo Coulter DO [Physician] - 04/17/20 1:40 pm (You have an appointent at the wound center for your arms on , 04/17 at 1:40pm. Please call their office at [phone] if you need to change or reschedule.) Suhail Lopez MD [Primary Care Provider] - Diet: Regular Addtl Attending Provider Instructions: arm ulcerations -certainly the arm ulcerations are deep and concerning, but fortunately there is nothing about them that shows evidence of "whole body infection" (ie the skin around the wounds does not show a tracking redness like we see with progressive skin infections, your white blood cell counts were not elevated (elevations w ould suggest a whole body response to infection), and your blood culture did not show bacteria to suggest bloodstream infection (they'll let it sit in the micro lab for 5 days and we'll call if it shows us a surprise - but that is not likely)) -the MRI did not show bone infection, although it did show fairly deep ulcerations and a degree of muscle inflammation -overall, it appears that your arm ulcer is fairly deep and has a degree of "smoldering" infection in it - which is largely why it hasn't been healing. the main treatment for this will be the local wound care (cleaning, dressings, gett ing pus and tissue out) -- over time if that's not doing enough to heal it, they might need to set you up with plastic surgery for skin grafting - but as we discussed, it makes much more sense to start with the basics that often do well for a lot of people -since there is evidence of "smoldering" infection in the ulcers, we'll want to treat to cover the bacteria that are in there -- typically these kinds of wounds have a lot of staph and strep - so we're treating with bactrim (trimethoprim/sulfamethoxazole) to clear those bacteria. because of the MRI suggesting a degree of muscle inflammation (possible infection at that level) we'll want to treat for at least 2 weeks. depending on how things are going as you are progressing, they may need to extend that course of antibiotics longer (or conversely, if you're doing really well, it's possible they could shorten it). your next dose of bactrim should be at bedtime tonight (04/14/20). sometimes when people are on bactrim for a while, we have to monitor a few labs to make sure it's sitting OK. the wound clinic and/or Dr Lopez will keep an eye on how you're doing and suggest doing this if it becomes necessary -we're getting you set up with the [facility] wound clinic - they're at [address] [facility] [facility] [address] [place] [address] -- expect a call from them in the next day or so, but if you haven't heard by tuesday, please call [phone] to confirm opiate addiction -as we discussed, addiction is a really common problem that we've learned a lot about over the last ~10 years. generally speaking, as we understand it, once someone's brain has gotten addicted to a substance, we're not really able to "find the off-switch" -- and so for most people, some form of maintenance therapy really does better than just trying to "fight it" -the science and research generally show that when we have someone on some type of maintenance therapy, they're much more likely to do well/have a productive life/not struggle with relapses than when people try other means of not using. as you discussed, it would be great if we can reach a point where there is some way to just get off all substances and not use anything, but knowing that we're really not there yet with the science, it would do you well to get hooked up with a clinic -- and while i don't have a lot of experience with most of them (since i'm only in the hospital) i've had really good (albeit limited) experience with the clinic up on the [facility] side of [place] - [place], [address] [place] [address], [place] [address], . if you haven't called already, give them a call so that you can get pipelined to way safer and more medically guided treatment that what you're doing now. "housekeeping" -definitely getting set up with a good family doc like Dr Lopez will be extremely helpful in not only getting you through all that you're going through right now, but also can do a lot to help keep you healthy over your lifetime -we're working on getting you set up with Dr Lopez, but just like with the wound clinic appointments above, if you haven't heard by about tuesday, please call them at [phone] -as we discussed, anyone who's used injection drugs should definitely be screened for things like hepatitis C and HIV (especially since we're way better at treating those things than we used to be) -- and so the next time you're having labs drawn, have them add those to the bloodwork. definitely get that done by the end of the year so it doesn't get pushed off. Pending Studies at Discharge: No (blood culture is preliminary, pending final results) Stand-Alone Forms: [facility], Smoking Cessation Medications and DC Order Prescriptions: New sulfamethoxazole-trimethoprim [Bactrim DS] 800-160 mg tablet 1 tab PO BID Qty: 28 RF: 0 Continued buprenorphine HCl 8 mg Tablet, Sublingual 8 mg SUBLINGUAL Q OTHER DAY RF: 0 Discharge Orders: Discharge Order (Routine); Ordered 04/14/20 Ordered By: Suhail Ellis Admission Data Admit Date/Time: 04/13/20 01:29 Attending Provider: Suhail Ellis Admit Provider: Brittany Washington Primary Care Provider: Suhail Lopez Other Providers: Pat Johnson ; Marcel Gardner ; Young Kathleen ; Doris Newman Other Interventions: Discharge Summary Assessment (RN) Last Done: 04/14/20 16:41 Coding Level of Care Code 76760 OBS Care - Discharge Diagnoses Arm ulcer L98.499 Elevated glucose R73.09 Elevated liver enzymes R74.8 Drug abuse F19.10 Discharge planning issues Z02.9
[2020-04-15 23:27] LABS: Amphetamine Urine, Confirm 1100 ng/mL (<250); Methamphetamine, Ur Confirm 3810 ng/mL (<250)
== END 2020-04-14 17:50 | disposition home or self-care (01) ==
LOC: 3W 21:43 → ED 21:43 → SUATTDRO 04-13 01:29 → 3W 04-13 02:26